=== PATIENT | male | born 1970 | race Caucasian/White ===

== ENCOUNTER 2022-06-18 08:20 | Outpatient (CLI) | payer OTHER, SELFPAY ==
--- NOTE | 2022-06-18 11:00 | NEURO_ITS ---
Impression: # Complains of numbness of top of right foot. # Absent right superficial peroneal nerve response. # No Tarsal Tunnel Syndrome. # Normal needle/EMG exam. # Clinical correlation recommended. Nerve Conduction Studies Anti Sensory Summary Table Stim Site NR Peak (ms) P-T Amp (?V) Site1 Site2 Delta-P (ms) Dist (cm) [place] (m/s) Right Sup Fibular Anti Sensory (Ant Lat Mall) NO RESPONSE 14 cm NR 14 cm Ant Lat Mall 16.0 Right Sural Anti Sensory (Lat Mall) Calf 3.9 4.0 Calf Lat Mall 3.9 16.0 41 Motor Summary Table Stim Site NR Onset (ms) O-P Amp (mV) Site1 Site2 Delta-0 (ms) Dist (cm) [place] (m/s) Right Lateral Plantar Motor (ADM) Med Mall 4.9 4.5 Right Peroneal Motor (Vastus Med) Ankle 4.9 0.8 Popit Ankle 9.3 40.0 43 Popit 14.2 0.7 Right Tibial Motor (Abd Gutierrez Brev) Ankle 4.5 4.9 Knee Ankle 10.6 44.0 42 Knee 15.1 3.8 F Wave Studies NR F-Lat (ms) L-R F-Lat (ms) Right Peroneal (Mrkrs) (EDB) 58.36 Right Tibial (Mrkrs) (Abd Hallucis) 58.36 EMG Side Muscle Nerve Root Ins Act Fibs Amp Dur Recrt Comment Right AntTibialis Dp Br Fibular L4-5 Nml Nml Nml Nml Nml Right Gastroc Tibial S1-2 Nml Nml Nml Nml Nml Right Fibularis Long Sup Br Fibular L5-S1 Nml Nml Nml Nml Nml Right Flex Dig Long Tibial L5-S2 Nml Nml Nml Nml Nml Right Ext Dig Brev Dp Br Fibular L5, S1 Nml Nml Nml Nml Nml MTDD
== END 2022-06-18 08:21 | disposition home or self-care (01) ==
LOC: ANHNEURO 08:23
PROVIDERS: PCP Orthopaedic Surgery; Visit Provider Internal Medicine
DX: M79.604 Pain in right leg (principal)
CPT/HCPCS: 95886; 95909